=== PATIENT | female | born 1985 | race Asian ===

== ENCOUNTER 2016-10-21 12:50 | Inpatient (IN) | payer BC ==
[~2016-10-21] VITALS: Ht 163 cm; Wt 60.8 kg
[2016-10-21] MEDS ORDERED: MINERAL OIL 30 ML UDC PO ONE (15:00)
[2016-10-21] MEDS ORDERED: LR 1,000 ML IV SCH (15:59)
[2016-10-21] MEDS ORDERED: LR 1,000 ML IV ONE (15:59)
[2016-10-21] MEDS ORDERED: TERBUTALINE SULFATE 1 MG/ML VIAL SUBCUT ONE (16:00)
[2016-10-21] MEDS ORDERED: NALBUPHINE HCL 10 MG/ML AMP IVP PRN (16:00)
[2016-10-21 16:27] LABS: BASOPHILS % (AUTO) 0.4 % (0.0-2.0); EOSINOPHILS # (AUTO) 0.1 K/uL (0.0-0.4); EOSINOPHILS % (AUTO) 1.5 % (0.0-4.0); HEMATOCRIT 34.5 % (36-48); HEMOGLOBIN 11.5 g/dL (12.0-16.0); LYMPHOCYTES # (AUTO) 0.7 K/uL (1.0-5.5); LYMPHOCYTES % (AUTO) 9.2 % (20.5-51.5); MEAN CORPUSCULAR HEMOGLOBIN 28 pg (27-31); MEAN CORPUSCULAR HGB CONC 33 % (32-36); MEAN CORPUSCULAR VOLUME 85 fL (79.0-98.0); MONOCYTES # (AUTO) 0.4 K/uL (0.0-1.0); MONOCYTES % (AUTO) 5.6 % (1.7-9.3); NEUTROPHILS # (AUTO) 6.1 K/uL (1.8-7.7); NEUTROPHILS % (AUTO) 83.3 % (40.0-70.0); PLATELET COUNT (AUTO) 150 K/uL (130-430); RED BLOOD CELL COUNT(AUTO) 4.07 MIL/uL (4.2-6.2); RED CELL DISTRIBUTION WIDTH 12.9 % (9.0-15.0); WHITE BLOOD COUNT (AUTO) 7.3 K/uL (4.8-10.8)
[2016-10-21] MEDS ORDERED: OXYTOCIN/NORMAL SALINE 1,000 ML IV SCH (17:03)
[2016-10-21 18:24] VITALS: BP_SYST 127
[2016-10-21] MEDS ORDERED: MISOPROSTOL 100 MCG TABLET (CYTOTEC) VG SCH (19:00)
[2016-10-22] MEDS ORDERED: FENT2mCg/mL-ROPIVA0.2%/NS EPID 150 ML EP ONE (02:00)
[2016-10-22] MEDS ORDERED: LR 500 ML IV ONE (02:31)
[2016-10-22] MEDS ORDERED: FENT2mCg/mL-ROPIVA0.2%/NS EPID 150 ML EP SCH (02:45)
[2016-10-22] MEDS ORDERED: ePHEDrine sulfate 50 MG/ML VIAL IVP PRN (02:45)
[2016-10-22] MEDS ORDERED: OXYCODONE/ACETAMINOPHEN 5-325 TABLET PO PRN (04:30)
[2016-10-22] MEDS ORDERED: HYDROcodone/ACETAMIN 5-325 MG TAB (NORCO/ VICODIN) PO PRN (04:30)
[2016-10-22] MEDS ORDERED: OXYTOCIN/NORMAL SALINE 1,000 ML IV ONE (06:56)
[2016-10-22] MEDS ORDERED: OXYTOCIN/NORMAL SALINE 1,000 ML IV SCH (06:56)
[2016-10-22] MEDS ORDERED: DOCUSATE SODIUM 100 MG CAPSULE PO PRN (07:00)
[2016-10-22] MEDS ORDERED: LANOLIN 7 GM OINT. TP PRN (07:00)
[2016-10-22] MEDS ORDERED: GLYCERIN/WITCH HAZEL (TUCKS PADS) TP PRN (07:00)
[2016-10-22] MEDS ORDERED: RHO(D) IMMUNE GLOBULIN/MALTOSE 1500 UNITS/1.3 ML (WINHRO) IM PRN (07:00)
[2016-10-22] MEDS ORDERED: METHYLERGONOVINE MALEATE 0.2 MG TABLET PO PRN (07:00)
[2016-10-22] MEDS ORDERED: MEASLES,MUMPS&RUBELLA VACC/PF 12500 UNIT/0.5 ML VIAL SUBQ PRN (07:00)
[2016-10-22] MEDS ORDERED: ANUSOL 1 EA SUPP.RECT (PREPARATION H) RC PRN (07:00)
[2016-10-22] MEDS ORDERED: DERMOPLAST SPRAY TP PRN (07:00)
[2016-10-22] MEDS ORDERED: SENNOSIDES/DOCUSATE SODIUM 1 TAB TABLET(SENOKOT-S) PO PRN (07:00)
[2016-10-22] MEDS: IBUPROFEN 600 MG TABLET PO PRN ×2 (12:04→17:26)
[2016-10-23 06:35] LABS: HEMATOCRIT 24.2 % (36-48); HEMOGLOBIN 7.9 g/dL (12.0-16.0)
[2016-10-23] MEDS: FERROUS SULFATE 325 MG TABLET.DR PO SCH ×3 (09:09→23:56)
[2016-10-23] MEDS: IBUPROFEN 600 MG TABLET PO PRN ×3 (11:58→23:56)
[2016-10-24] MEDS: IBUPROFEN 600 MG TABLET PO PRN (05:57)
[2016-10-24] MEDS: FERROUS SULFATE 325 MG TABLET.DR PO SCH (09:58)
== END 2016-10-24 11:35 | disposition home or self-care (01) | DRG 775 ==
LOC: SPU 12:50 → OBSVTOIN 14:34 → UNDODISIN 10-24 11:35
PROVIDERS: ADMIT Obstetrics & Gynecology; ATTEND Obstetrics & Gynecology
PROC: 10E0XZZ Delivery of Products of Conception, External Approach (ICD-10-PCS; principal; 2016-10-22)
PROC: 0KQM0ZZ Repair Perineum Muscle, Open Approach (ICD-10-PCS; 2016-10-22)
PROC: 0W8NXZZ Division of Female Perineum, External Approach (ICD-10-PCS; 2016-10-22)
PROC: 4A0HXCZ Measurement of Products of Conception, Cardiac Rate, External Approach (ICD-10-PCS; 2016-10-22)
PROC: 3E0S3CZ (ICD-10-PCS; 2016-10-22)
PROC: 00HU33Z Insertion of Infusion Device into Spinal Canal, Percutaneous Approach (ICD-10-PCS; 2016-10-22)
PROC: 3E0234Z Introduction of Serum, Toxoid and Vaccine into Muscle, Percutaneous Approach (ICD-10-PCS; 2016-10-22)
DX: O41.03X0 Oligohydramnios, third trimester, not applicable or unspecified (principal); O70.1 Second degree perineal laceration during delivery; Z3A.39 39 weeks gestation of pregnancy; Z37.0 Single live birth; Z23 Encounter for immunization
CPT/HCPCS: 36415; 81002-TC; 85018-TC; 85025; 86592; 86886; 86900; 86901; G0378; J2300; J2590; J3010; J7120